=== PATIENT | female | born 1980 | race Hispanic/Latino ===

== ENCOUNTER 2017-01-12 14:09 | Emergency (ER) | payer SELFPAY ==
[~2017-01-12] VITALS: Ht 157.5 cm; Wt 88.6 kg
[2017-01-12 14:13] VITALS: BP 150/85; PULSE 71; RESP 14; O2SAT 98
[2017-01-12 15:32] LABS: BASOPHILS % (AUTO) 0.3 % (0-3); EOSINOPHILS % (AUTO) 1.6 % (0-5); Mean Corpuscular Hemoglobin 31.7 pg (27.0-35.0); Mean Corpuscular Volume 91.6 fL (81-100); NEUTROPHILS % (AUTO) 33.1 % (40-74); Platelet Count 319 bil/L (150-400)
[2017-01-12 15:45] LABS: TROPONIN T < 0.010 ug/L (0.0-0.011)
--- NOTE | 2017-01-12 15:53 | ED.REPORT ---
HPI-Chest Pain Under 40 Date of Service Jan 12, 2017 ED Provider: Placido Flores MD Pt is an otherwise healthy 36 year old female with a hx of GERD who presents to the ED from complaining of chest/breast pain that has been intermittent over the last year but worse overnight. Pt was getting a mammography this morning due to bilateral breast pain intermittently for the past year. when she was referred to the department. Pt was given 4 chewable ASA and IV and had an EKG done at urgent care. Pt c/o associated lightheadedness, diaphoresis, SOB, generalized weakness, palpitations, diplopia, back pain, and swelling of the hands and feet. She denies fever, abdominal pain, nausea, vomiting, headache, cough, rash, diarrhea, change in urination habits, pleuritic pain, or any other symptoms. Nursing Notes Stated Complaint: CHEST PAIN Chief Complaint: Chest Pain Nursing Notes Reviewed: Yes Allergies: Uncoded Allergies: NKA (Allergy, 08/03/09) General Time Seen by MD: 15:06 Chief Complaint Chest pain Hx Obtained From: Patient Arrived By: Walk-in Sudden in Onset?: No Symptom Duration: Since onset Quality: Sharp Recent Healthcare: No recent doctor visit, No recent hospitalization Similar Sx Previous: Yes Risk Factors )( CAD Risk Stratification No Hyperlipidemia, No Hypertension, No Known CAD, No Smoking Risk factors reviewed TAD Risk Stratification No 1st degree relative, No Coarctation of aorta, No High intensity wt lifting Risk factors reviewed )( PE Risk Stratification No Coagulation Disorder, No Immobilization, No Surgery Last 60 Days, No Trauma Risk factors reviewed Past Medical History Past Medical History Reports: GERD (Takes OTC medication for) Past Surgical History R shoulde rsurg Reports: (x3 ) Family History Reports: Diabetes mellitus Smoking History Never Smoker Social History Alcohol Use: "Social" Other Social History: Ambulatory Status Independent Review of Systems Review of Systems Note: Denies change in urination habits Constitutional: Reports: Weakness - generalized, Denies: Fever Respiratory: Reports: Shortness of breath, Denies: Non-productive cough, Pleuritic pain Cardiovascular: Reports: Palpitations GI: Denies: Abdominal pain, Diarrhea, Nausea, Vomiting Musculoskeletal: Reports: Back pain, Extremity swelling Skin: Reports Diaphoresis, Reports Swelling (hands and feet), Denies Rash Neurologic: Reports: Lightheaded, Denies: Headache Complete sys rev & neg: except as marked. Eyes: Reports: Diplopia Physical Exam Initial Vital Signs Vital Signs (First) Date Time Temp Pulse Resp B/P Pulse Ox O2 Delivery O2 Flow Rate FiO2 01/12/17 14:13 36.4 71 14 150/85 98 Room Air Initial VS: Reviewed General/Constitutional: Awake, Alert, No acute distress Respiratory / Chest: Atraumatic, Breath sounds NL, Breath sounds = bilat, No respiratory distress Chest very tender to palpation Cardiovascular: Heart rate NL, Regular rhythm, Heart sounds NL Neck: Atraumatic, Supple, Full range of motion Abdomen: Atraumatic, Soft, Non-tender Back: Atraumatic, Inspection NL, Full range of motion Skin: Atraumatic, Color NL, No rash, Warm, Dry Neurologic: Oriented X3, Speech NL, No motor deficits, No sensory deficits Head / Eyes: Atraumatic, Normocephalic, PERRL, EOMI ENT: Atraumatic, Airway patent, Mucous membranes moist Upper Extremity / MS: Atraumatic, Inspection NL, Full range of motion Interpretation & Diagnostics Lab Results Interpretation Result Diagram: 01/12/17 1439 01/12/17 1439 Test 01/12/17 14:39 01/12/17 17:36 White Blood Count 6.8th/mm3 (3.8-10.1) Red Blood Count 4.51mil/mm3 (3.90-5.20) Hemoglobin 14.3g/dL (12.0-15.6) Hematocrit 41.3% (35.0-46.0) Mean Corpuscular Volume 91.6fL (81-100) Mean Corpuscular Hemoglobin 31.7pg (27.0-35.0) Mean Corpuscular Hemoglobin Concent 34.6% (32.0-37.0) Red Cell Distribution Width 12.4% (12.3-15.4) Platelet Count 319bil/L (150-400) Neutrophils (%) (Auto) 33.1% (40-74) Lymphocytes (%) (Auto) 55.9% (14-46) Monocytes (%) (Auto) 9.0% (4-12) Eosinophils (%) (Auto) 1.6% (0-5) Basophils (%) (Auto) 0.3% (0-3) Hold Purple Top Tube Received (Received) Hold Blue Top Tube Received (Received) Sodium Level 140mEq/L (134-144) Potassium Level 3.8mEq/L (3.5-5.2) Chloride Level 103mEq/L (97-108) Carbon Dioxide Level 22mmol/L (18-29) Blood Urea Nitrogen 10mg/dL (6-20) Creatinine 0.51mg/dL (0.57-1.00) Estimat Glomerular Filtration Rate 195mL/min (>59) Glucose Level 107mg/dL (60-99) Calcium Level 9.4mg/dL (8.5-10.1) Magnesium Level 2.0mg/dL (1.6-2.6) Total Bilirubin 1.0mg/dL (0.0-1.2) Aspartate Amino Transf (AST/SGOT) 47U/L (0-50) Alanine Aminotransferase (ALT/SGPT) 80U/L (0-32) Alkaline Phosphatase 59U/L (25-150) Troponin T < 0.010ug/L (0.0-0.011) Total Protein 8.0g/dL (6.4-8.4) Albumin 4.6g/dL (3.4-5.0) Hold Red Top Tube Received (Received) Hold [place] Top Tube Received (Received) Hold Urine Received (Received) ECG Interpretation ECG Interpretation: Sinus rhythm rate 60 Time: 15:40 Interpreted by: ED physician X-Ray Chest Interpretation Chest Xray Interpretation: IMPRESSION: Normal for age. Source of chest pain is not seen. Dictated by: Fredy Kyle M.D. on 01/12/2017 at 17:50 Approved by: Fredy Kyle M.D. on 01/12/2017 at 17:50 View: AP & lat Interpretation / Wet Read by: Interpret - Radiologist Re-Eval/Medical Decision Source of Hx: Old records Re-Evaluation/Progress : Time of Eval: 18:44 Re-Evaluation/Progress Note: Pt rechecked. Discussed all results. Informed pt of plan for discharge. Pt understands and agrees with plan. F/U instructions and RTER warnings given. All questions addressed. Counseled Regarding: Diagnosis, Lab results, Need for follow-up, When/why to return to ED Discharge & Departure Primary Impression: Chest pain Chest pain type: unspecified Qualified Code: R07.9 - Chest pain, unspecified Disposition: Home Discharge Condition All VS Reviewed: Yes Condition: Stable Patient Instructions: Chest Pain (ED) Additional Instructions: I believe that the pain you are experiencing is most likely related to muscles and bones and joints in your chest. No evidence of heart or lung disease at this time. Follow-up with your primary care doctor in the coming days for further evaluation as needed. Take ibuprofen or Tylenol as needed for pain. Referrals: NOPCP (PCP) Scribe Attestation Portions of this note were transcribed by Shy Esteban and Yahaira Harden. I, Dr. Flores personally performed the history, physical exam and medical decision-making; I reviewed and confirmed the accuracy of the information in the transcribed note. copies to: [facility] Placido Flores MD Jan 12, 2017 15:53 Shy Esteban Jan 12, 2017 16:24 YAHAIRA HARDEN Jan 12, 2017 19:16
[2017-01-12 16:00] VITALS: BP 122/73; PULSE 61; RESP 16; O2SAT 98
[2017-01-12 16:30] VITALS: BP 126/80; PULSE 59; RESP 18; O2SAT 98
[2017-01-12 17:00] VITALS: BP 120/77; PULSE 65; RESP 17; O2SAT 99
[2017-01-12 17:30] VITALS: BP 120/72; PULSE 59; RESP 17; O2SAT 98
--- NOTE | 2017-01-12 17:52 | DRSVH ---
PROCEDURE: X-RAY CHEST, TWO VIEWS ([id number]) INDICATIONS: chest pain TECHNIQUE: 2 views of the chest were acquired. COMPARISON: [facility], CR, CHEST 2VW, 10/07/2013, 1:24. [facility], CR, BRY ST 2VW, 09/25/2011, 19:29. FINDINGS: Surgical changes and devices: None. Lungs and pleura: No pleural effusions or pneumothorax. Lungs are clear. Mediastinum: Mediastinal contours are normal. Heart size is normal. Bones and chest wall: No suspicious bony abnormalities. Soft tissues appear unremarkable. IMPRESSION: Normal for age. Source of chest pain is not seen. Dictated by: Fredy Kyle M.D. on 01/12/2017 at 17:50 Approved by: Fredy Kyle M.D. on 01/12/2017 at 17:50
[2017-01-12 18:48] VITALS: BP 120/72; PULSE 59; RESP 17; O2SAT 98
== END 2017-01-12 18:49 | disposition home or self-care (01) ==
LOC: SED 14:09
DX: R07.9 Chest pain, unspecified (principal); K21.9 Gastro-esophageal reflux disease without esophagitis